=== PATIENT | female | born 1975 | race Caucasian/White ===

== ENCOUNTER → 2017-03-23 | Outpatient (CLI) | payer BC, OTHER ==
[~2017-03-23] VITALS: Ht 170.2 cm; Wt 92.8 kg
[~2017-03-23] MED LIST: ASCO10003 PO; MULT-506 PO; OMEG10007 PO; PARO1TAB27 PO; PROBCAP PO
[2017-03-23 16:14] VITALS: BP 114/65; PULSE 91; Ht 170.2 cm; Wt 92.8 kg
== END | disposition home or self-care (01) ==
LOC: C.NEUR 14:27
PROVIDERS: ATTEND Physician Assistant
DX: R53.83 Other fatigue (principal); R06.83 Snoring; G47.9 Sleep disorder, unspecified

== ENCOUNTER → 2017-04-10 | Outpatient (CLI) | payer BC | END | disposition home or self-care (01) | LOC: C.PAPS 08:39 | PROVIDERS: ATTEND Obstetrics & Gynecology | DX: Z01.419 Encounter for gynecological examination (general) (routine) without abnormal findings (principal) ==

== ENCOUNTER → 2017-05-06 | Outpatient (CLI) | payer BC ==
--- NOTE | 2017-05-07 06:58 | PAP/PSG TECHNICIAN REPORT ---
[facility] Licensed Insurance Agent Polysomnogram Report Study name: None Report date: 05/07/2017 Study date: 05/06/2017 Referring Physician: Vernon Vivar M.D. Name: ESTEBAN NÚÑEZ Denia Interpreting Physician: Vernon Vivar M.D. Date of : 1975 Licensed Insurance Agent: Desiree Abraham, PSGT. Sex: Female Age: 41 StudyType: PSG Weight: 204 lbs Height: 41 years, Height 5' 7" BMI: 31.95 Medications: ARITHROMYCIN 250 MG, DICYCLOMINE HCI 10 MG, MULTI- VITS, NAPROXEN 500 MG, TRINTELLIX 5 MG, VIT.-C 1000 MG. Patient History 41 YR. OLD FEMALE IN ROOM 7, PRESENTS TONIGHT WITH LETHARGY, HAVING TROUBLE WAKEING IN THE MORING AND HAVING DAYTIME FATIGUE. PT. WAS USEING KLONOPIN FOR RESTLESS LEGS BUT WAS TOLD BY HR MD TO STOP TAKING IT FOR THE FATIGUE. Parameters Monitored NPSG: E1-M2, E2-M1, Fp1-M2, Fp2-M1, F3-M2, F4-M2, F4-M1, C3-M2, C4-M2, C4-M1, O1-M2, O2-M2, O2-M1, T3-M2, T4-M1, P3-M2, P4-M1, CHIN1, CHIN2, HR, EKG, Legs, PFLOW, SNOR, FLOW, CFLOW, Tidal Volume, THOR, ABDO, SpO2, PLTH, CPRESS, ETCO2 Wave, ETCO2, pH Sleep Architecture Sleep Stages Time at Lights Off 10:16:43 PM STAGES Time (min.) TST (%) Time at Lights On 5:22:13 AM Wake 111.0 -- Total Recording Time (TRT) 426.50 min. N1 13.5 4 Total Sleep Period (TSP) 344.5 min. N2 226.5 72 Total Sleep Time (TST) 314.5min. N3 0.0 0 Awake Time 111.0 min. REM 74.5 24 Wake after Sleep Onset 30.0 min. Sleep Efficiency (SE) 74 % Sleep Onset Latency (DANIELLE) 81.0 min. Number of Stage 1 Shifts None Awakenings 4 Stage Changes 30 Number of REM periods 2 REM 74.5 24 REM Latency 265.0 min. NREM 240.0 76 Body Position Analysis Supine Right Left Side Prone Vertical Total Sleep Time (min.) 55.8 80.2 234.3 314.50 0.0 0.0 Total Sleep Time (%) 0% 26% 74% 100 0% N/A% Total Sleep Time REM (min.) 0.0 17.7 56.8 None 0.0 0.0 Total Sleep Time NREM (min.) 0.0 62.5 177.5 None 0.0 0.0 Intermittent Wake (min.) 55.8 38.8 16.5 None 0.0 0.0 Total Sleep Period (%) 0% None None None None None Arousals Myoclonus (PLM) * Events Count Index Events Count Index Spontaneous 72 14 Events Awake (PLMW) 4 2.2 Respiratory 3 0.6 Events Asleep w/ Arousal (PLMA) 19 3.6 PLM 19 4 Events Asleep w/o Arousal (PLMS) 125 23.8 Snoring 5 1 Total Asleep 144 27.5 Total 98 19 Total 148 21 Respiratory Analysis * CA OA MA CH H RERA Total Count 0 0 0 0 18 0 18 Index 0.0 0.0 0.0 0 3.4 0 3.4 Mean Duration 0.0 0.0 0.0 0.00 16.6 0.0 16.6 Longest Duration 0.0 0.0 0.0 0.00 0.0 0.0 31.0 Respiratory Event Summary Total Supine ~Supine Right Left Prone REM NREM Apneas Count 0 N/A 0 0 0 N/A 0 0 Index 0.0 N/A 0 0.0 0.0 N/A 0 0 Hypopneas (4% Desat) Count 18 N/A 18 0 18 N/A 17 1 Index 3.4 N/A 3 0.0 4.6 N/A 13.7 0.3 Apneas & All Hypopneas Count 18 N/A 18 0 18 N/A 17 1 Index 3.4 N/A 3 0 5 N/A 13.7 0.3 Respiratory Events (Tube Rebuilder+All Hyp+RERA) Count 18 N/A 18 0 18 N/A 17 1 Index 3.4 N/A 3 0.0 4.6 N/A 13.7 0.3 Respiratory Related Arousal Count 3 N/A 3 0 3 N/A 3 0 Index 0.6 N/A 1 0 1 N/A 2 0 Snoring Analysis Supine Right Left Prone REM NREM Total Snore duration 3.1 min Snores count N/A 8 115 N/A 14 109 123 Snore mean duration 1.5 Sec Snores index N/A 6 29 N/A 11.3 27.3 23.5 TST with snoring (%) 1.0% Desaturation Event Summary: Minimum %SpO2 Event Count Mean/Min/Max Duration(sec.) Desaturation Index % Time In Bed > 90 26 30.6 / 13.0 / 59.8 3.9 93.1 86 - 90 9 28.6 / 14.3 / 50.8 18.9 6.7 81 - 85 0 N/A 0.0 0.2 76 - 80 0 N/A 0.0 0.0 71 - 75 0 N/A 0.0 0.0 66 - 70 0 N/A 0.0 0.0 61 - 65 0 N/A 0.0 0.0 56 - 60 0 N/A 0.0 0.0 51 - 55 0 N/A 0.0 0.0 < 50 0 N/A 0.0 0.0 Total REM NREM Awake <50% 0.0 min. 0.0 min. 0.0 min. 0.0 min. 51 - 60% 0.0 min. 0.0 min. 0.0 min. 0.0 min. 61 - 70% 0.0 min. 0.0 min. 0.0 min. 0.0 min. 71 - 80% 0.0 min. 0.0 min. 0.0 min. 0.0 min. 81 - 90% 29.4 min. 16.1 min. 12.9 min. 0.4 min. 91 - 100% 395.7 min. 58.4 min. 227.0 min. 110.3 min. Average 93 92 92 94 Minimum SpO2 83 83 89 90 Desaturation Event Index 4.2 20.1 1.3 0.0 # Desat. Events below 89% 19 19 N/A N/A Time(%) with Saturation below 89% 2.1 2.1 0.0 0.0 Time(min.) with Saturation below 89% 9.1 9.1 0.0 0.0 Time (mins) REM (mins) NREM (mins) % of TST SpO2 Below 90% 29 25 N4 4.2 SpO2 Below 88% 10 0 0 2 Heart Rate Analysis Min (bpm) Max (bpm) Average (bpm) Awake 50 94 63 NREM 50 96 62 REM 49 93 62 Overall 49 96 62 Supplemental O2 Values Minimum O2 level: None Value Start Time End Time Licensed Insurance Agent Comments PSG Study MS. Núñez slept in the right, left, supine positions. No cardiac arrhythmia or PLM's noted. No bruxism noted. Snoring was noted and scored as a 2 on a scale of 1 through 5. (0=no snoring, 5=snoring loud enough to be heard through a closed door or down the singh way) Ms. Núñez awoke to use the restroom zero times during the night. Ms. Núñez stated, I did not sleep as well as I do when I am in my own bed. The final report will be interpreted and signed by a sleep physician. The completed physician report will then be placed in the patient medical record. Therapy (cm H2O) 0 TIB (min.) 425.5 TST (min.) 314.5 Sleep Onset (min.) 81.0 REM Onset From Sleep (min.) 265.0 Sleep Efficiency % 74 Wakefulness (%) 26 Wakefulness (min.) 111.0 NREM 1 (%) 4 NREM 1 (min.) 13.5 NREM 2 (%) 72 NREM 2 (min.) 226.5 NREM 3 (%) 0 NREM 3 (min.) 0.0 REM (%) 24 REM (min.) 74.5 # Arousals 98 Arousal Index 19 # Snore 123 Snore Index 23.5 AHI 3.4 AHI Supine N/A AHI Non-Supine 3 NREM AHI 0.3 REM AHI 13.7 RDI 3.4 # Obstructive Apnea 0 # Central Apnea 0 # Mixed Apnea 0 # Hypopneas 18 RERAs 0 Total Respiratory Events 18 Time Below SpO2 89% (min.) 9.1 Mean NREM SpO2 (%) 92 Mean REM SpO2 (%) 92 Mean Sleep SpO2 (%) 92 Min NREM SpO2 (%) 89 Min REM SpO2 (%) 83 Position Supine (min.) 55.8 Position Non-supine (min.) 314.5 LM Index Sleep 27.5 LM Index NREM 31.3 LM Index REM 15.3 Mean Heart Rate (bpm) 62 Min Heart Rate (bpm) 49
--- NOTE | 2017-05-11 15:26 | Sleep Study ---
Sleep Study Report Date of Service: May 06, 2017 Sleep Study Report Clinical data: 41-year-old female with lethargy, difficulty awakening in the morning, and daytime fatigue. She previously was using Klonopin for RLS but was told to stop taking it because of fatigue. She was referred to the Sleep Lab by Dr. Mendez, Sumi Rain PA-C, and myself for evaluation of possible sleep apnea/PLMD. Sleep architecture: Total sleep time is 314.5 minutes divided between 240 minutes of non REM sleep and 74.5 minutes of REM sleep. Sleep onset latency was delayed at 81 minutes. REM latency was delayed at 265 minutes. Sleep efficiency was reduced at 74 percent. Wake after sleep onset was 30 minutes. Sleep consisted of stage N1 4 percent, stage N2 72 percent, and REM 24 percent. Arousal data: 98 arousals recorded for index of 19 per hour. PLM data: 144 limb movements or sleep were noted for an index of 27.5 per hour with arousal index of 3.6 per hour. This is consistent with mild PLMD. Respiratory data: There was no evidence of significant sleep apnea/hypopnea seen. The AHI was 3.4. There were 18 hypopneas episodes. The longest hypopnea episode was 16.6 seconds. Oximetry data: Mild nocturnal hypoxemia was seen for oxygen ny was 83 percent during REM sleep. Mean saturation was 93 percent. Time below 88 percent was 10 minutes. EKG: Heart ranged from 50 to 96 beats per minute. No arrhythmias were noted. Block Greaser's comments: Patient slept in the right, left, and supine positions. Snoring was mild rated 2 on a scale of 1 through 5. Patient did not awaken during the night to use the restroom. All of her hypopneas occurred in the manager terminal hours during a long period of REM sleep. Impression: No evidence of clinically significant sleep apnea/hypopnea. Mild nocturnal hypoxemia. Mild PLMD. Recommendations: Patient could be considered for treatment with very low flow oxygen and/or possibly medications for PLMD if felt clinically significant. Clinical correlation is needed. Copies To 1: Sumi Rain PA-C; Stone Mendez M.D.
== END | disposition home or self-care (01) ==
LOC: C.NEUR 21:00
PROVIDERS: ATTEND Physician Assistant
DX: R53.83 Other fatigue (principal); G25.81 Restless legs syndrome; G47.9 Sleep disorder, unspecified; R06.83 Snoring

== ENCOUNTER → 2017-05-18 | Outpatient (CLI) | payer BC ==
[~2017-05-18] VITALS: Ht 170.2 cm; Wt 93.7 kg
[2017-05-18 16:25] VITALS: BP 117/77; PULSE 80; Ht 170.2 cm; Wt 93.7 kg
== END | disposition home or self-care (01) ==
LOC: C.NEUR 15:07
PROVIDERS: ATTEND Physician Assistant
DX: G47.34 Idiopathic sleep related nonobstructive alveolar hypoventilation (principal); R25.8 Other abnormal involuntary movements

== ENCOUNTER → 2018-06-26 | Outpatient (CLI) | payer OTHER | END | disposition home or self-care (01) | LOC: C.PAPS 13:33 | PROVIDERS: ATTEND Obstetrics & Gynecology | DX: Z12.4 Encounter for screening for malignant neoplasm of cervix (principal) ==